=== PATIENT | female | born 1980 | race Caucasian/White ===

== ENCOUNTER → 2019-12-12 | Outpatient (CLI) | payer BC ==
[2019-12-12 10:10] LABS: EOS % 7.1 % (1.0-5.0); HEMATOCRIT 43.7 % (37.0-47.0); HEMOGLOBIN 14.3 g/dL (12.5-16.0); LYMPH# 3.6 (1.50-4.00); MEAN CELL VOLUME 96 fl (78-100); MEAN CORPUSCULAR HEMOGLOBIN 31 pg (27-31); MEAN CORPUSCULAR HGB CONC 33 g/dL (33-37); MEAN PLATELET VOLUME 9.7 fl (7.4-10.4); MONO # 1.1 (0.20-0.80); NEU # 6.5 (1.40-6.50); PLATELET COUNT 351 K/mm3 (130-400); RED BLOOD COUNT 4.55 M/mm3 (4.10-5.30); WHITE BLOOD COUNT 12.2 K/mm3 (4.8-10.8)
[2019-12-12 10:13] LABS: EOS # 0.9 (0.04-0.40)
[2019-12-12 10:22] LABS: ALBUMIN 3.9 g/dL (3.5-5.0)
[2019-12-12 10:23] LABS: POTASSIUM 3.6 mmol/L (3.5-5.1)
[2019-12-12 10:24] LABS: CALCIUM 9.3 mg/dL (8.3-10.5)
[2019-12-12 10:25] LABS: TOTAL PROTEIN 6.9 g/dL (6.4-8.3)
[2019-12-12 10:27] LABS: TOTAL BILIRUBIN 0.5 mg/dL (0.2-1.2)
[2019-12-12 11:39] LABS: ERYTHROCYTE SEDIMENTATION RATE 3 mm/hr (0-20)
== END ==
LOC: LAB 09:57
PROVIDERS: Nurse Practitioner Family
DX: R21 Rash and other nonspecific skin eruption (principal)

== ENCOUNTER → 2019-12-13 | Outpatient (CLI) | payer BC ==
[2019-12-14 04:47] LABS: FOLLICLE STIMULATING HORMONE 6.5 mIU/mL (()); LUTENIZING HORMONE 6.4 mIU/mL (()); PROLACTIN AMS 17.7 ng/mL (())
== END ==
LOC: LAB 10:08
PROVIDERS: Physician Assistant
DX: Z76.89 Persons encountering health services in other specified circumstances (principal); N92.6 Irregular menstruation, unspecified; L25.5 Unspecified contact dermatitis due to plants, except food; J30.89 Other allergic rhinitis

== ENCOUNTER → 2021-02-24 | Outpatient (CLI) | payer BC | LOC: MAMMO 09:03 | DX: Z12.31 Encounter for screening mammogram for malignant neoplasm of breast (principal); N64.89 Other specified disorders of breast ==

== ENCOUNTER → 2021-03-04 | Outpatient (CLI) | payer BC | LOC: MAMMO 13:47 | DX: N64.89 Other specified disorders of breast (principal) ==

== ENCOUNTER → 2021-04-02 | Outpatient (CLI) | payer BC | END | disposition still patient (30) | LOC: RAD 08:21 | DX: M54.50 Low back pain, unspecified (principal); M25.551 Pain in right hip ==

== ENCOUNTER → 2021-07-20 | Outpatient (CLI) | payer BC | LOC: RAD 15:26 | DX: R05.3 Chronic cough (principal) ==

== ENCOUNTER → 2021-09-13 | Outpatient (CLI) | payer BC | LOC: MAMMO 07:30 | DX: N64.89 Other specified disorders of breast (principal) ==